=== PATIENT | male | born 1990 | race Two or more races ===

== ENCOUNTER 2019-07-21 21:02 | Emergency (ER) | payer SELFPAY ==
[~2019-07-21] VITALS: Ht 175.3 cm; Wt 104.3 kg
[2019-07-21 21:10] VITALS: BP 166/107
--- NOTE | 2019-07-21 21:10 | NUR ---
ED Nurse Note: Pt BIBA BIBA 66 c/o anxiety. Pt has hx of anxiety, HTN. Pt stated he took 1g xanax and his HTN med today. AAO x4, VSS at this tinme, skin is dryn warm to touch.
[2019-07-21] MEDS ORDERED: AMITRIPTYLINE75 MG ORAL (21:40)
--- NOTE | 2019-07-21 21:40 | Emergency Room Report ---
History of Present Illness General Chief Complaint: General Complaint Source: Patient Present Illness HPI Is a 28-year-old male with recent diagnosis of anxiety and asthma. This been ongoing for last 2 months. He also has a history of cocaine abuse in the past. He said he quit that and also smoking for the last few months. He was driving he felt short of breath. He said he was breathing fast he felt wheezing. He felt his arms going numb and tingly. He took a Xanax and now he said he felt better. He came by 911. No nausea no vomiting. Has not seen a supervisor pumping. He is currently taking albuterol and sound like Advair. Denies any other complaint. Allergies: Coded Allergies: No Known Allergies (Unverified , 07/21/19) Patient History Past Medical History: see triage record, old chart reviewed Past Surgical History: none Pertinent Family History: none Social History: Denies: smoking Immunizations: other Reviewed Nursing Documentation: PMH: Agreed; PSxH: Agreed Nursing Documentation-PMH Hx Hypertension: Yes History Of Psychiatric Problem: Yes - anxiety Review of Systems Eye: Denies: eye pain, blurred vision ENT: Denies: ear pain, nose congestion, throat swelling Respiratory: Reports: shortness of breath, wheezing; Denies: cough Cardiovascular: Reports: palpitations; Denies: chest pain Gastrointestinal: Denies: abdominal pain, diarrhea, nausea, vomiting Musculoskeletal: Denies: back pain, joint pain Skin: Denies: rash Neurological: Denies: headache, numbness Endocrine: Denies: increased thirst, increased urine Hematologic/Lymphatic: Denies: easy bruising All Other Systems: negative except mentioned in HPI Physical Exam Vital Signs Date Time Temp Pulse Resp B/P (MAP) Pulse Ox O2 Delivery O2 Flow Rate FiO2 07/21/19 20:58 98.2 120 20 166/107 (126) 100 Room Air Vitals with high blood pressure Sp02 EP Interpretation: reviewed, normal General Appearance: well appearing, no apparent distress, alert Head: normocephalic, atraumatic Eyes: bilateral eye PERRL, bilateral eye EOMI ENT: hearing grossly normal, normal pharynx Neck: full range of motion, supple, no meningismus Respiratory: chest non-tender, lungs clear, normal breath sounds Cardiovascular #1: regular rate, rhythm, no murmur Gastrointestinal: normal bowel sounds, non tender, no mass, no organomegaly, no bruit, non-distended Musculoskeletal: back normal, gait/station normal, normal range of motion Psychiatric: mood/affect normal Medical Decision Making Diagnostic Impression: Primary Impression: Panic attack ER Course Patient presents with sound like a panic attack. He is better now. I doubt that he has asthma since he had to use an inhaler a lot. He has no wheezing now. He will need to see a supervisor pumping to do see if he does have asthma or not. Will discharge home. Last Vital Signs Date Time Temp Pulse Resp B/P (MAP) Pulse Ox O2 Delivery O2 Flow Rate FiO2 07/21/19 20:58 98.2 120 20 166/107 (126) 100 Room Air Status: improved Disposition: HOME, SELF-CARE Condition: Stable Scripts Amitriptyline HCl (ELAVIL*) 75 Mg Tablet 75 MG ORAL BEDTIME, #30 TAB Prov: Skyler Kraus MD 07/21/19 Additional Instructions: Follow-up with your doctor in 7 days. You will need a referral to see a supervisor pumping for pulmonary function testing to see if you have asthma. Return if worse. Skyler Kraus MD Jul 21, 2019 21:40
[2019-07-21 21:43] VITALS: BP 166/107
--- NOTE | 2019-07-21 21:44 | NUR ---
ED Nurse Note: Pt cleared by health care Provider for discharge. DC instructions/prescription was given and explained to pt and verbalized understanding of teachings. All medical deviecs such as ID band removed. Pt is AAO x4, ambulatory and left with all personal belongings.
== END 2019-07-21 21:45 | disposition home or self-care (01) ==
LOC: EDBD 21:02 → EMR 21:30
DX: F41.0 Panic disorder [episodic paroxysmal anxiety] (principal); I10 Essential (primary) hypertension; Z87.891 Personal history of nicotine dependence
CPT/HCPCS: 99282